=== PATIENT | male | born 1975 ===

== ENCOUNTER 2024-10-17 10:00 | Inpatient (IN) | payer OTHER ==
[~2024-10-17] VITALS: Ht 167.6 cm; Wt 110.7 kg
[2024-10-24] MEDS ORDERED: COZAAR50 MG PO (14:33)
[2024-10-24] MEDS ORDERED: TAPAZOLE5 MG PO (14:34)
[2024-10-26] MEDS ORDERED: DEXAMETHASONE SODIUM PHOSPHATE 4 MG/ML VIAL IV ONE (11:30)
[2024-10-26] MEDS ORDERED: ENALAPRILAT DIHYDRATE 1.25 MG/ML VIAL IV PRN (12:45)
[2024-10-26] MEDS ORDERED: ONDANSETRON HCL 2 MG/ML VIAL IV PRN (12:45)
[2024-10-26 17:00] VITALS: BP 153/78; O2SAT 98
[2024-10-26] MEDS ORDERED: DIPHENHYDRAMINE HCL 75 MG,LIDOCAINE HCL 30 ML,MAG HYDROX/ALUMINUM HYD/SIMETH 30 ML PO SCH (17:00)
[2024-10-26] MEDS ORDERED: TRAMADOL HCL 50 MG TABLET PO SCH (17:00)
[2024-10-26] MEDS ORDERED: CYCLOBENZAPRINE HCL 5 MG TABLET PO SCH (17:00)
[2024-10-26] MEDS ORDERED: ACETAMINOPHEN 500 MG GEL..CAP PO SCH (17:00)
[2024-10-26] MEDS ORDERED: Calcium Carbonate 1 TAB TABLET PO SCH (21:00)
[2024-10-26] MEDS ORDERED: PANTOPRAZOLE SODIUM 40 MG/VIAL VIAL IV PUSH SCH (21:00)
[2024-10-27 00:52] VITALS: BP 137/80
[2024-10-27] MEDS ORDERED: LEVOTHYROXINE SODIUM 175 MCG TABLET PO SCH (06:00)
[2024-10-27 08:17] VITALS: BP 119/81; O2SAT 99
== END 2024-10-27 11:16 | disposition home or self-care (01) | DRG 627 ==
LOC: O/R 10-26 06:55 → SURH 10-26 07:00
PROVIDERS: ADMIT Surgery; ATTEND Surgery
PROC: 0GTK0ZZ Resection of Thyroid Gland, Open Approach (ICD-10-PCS; principal; 2024-10-26 07:00)
DX: E04.2 Nontoxic multinodular goiter (principal); E05.00 Thyrotoxicosis with diffuse goiter without thyrotoxic crisis or storm; E06.3 Autoimmune thyroiditis